=== PATIENT | female | born 1975 | race African-American/Black ===

== ENCOUNTER 2017-08-10 18:10 | Emergency (ER) | payer OTHER ==
[~2017-08-10] VITALS: Ht 175.3 cm; Wt 141.5 kg
[~2017-08-10 18:10] MED LIST: CRANBERRY TABL1 EACH PO; CYANOCOBALAM1000 MCG PO; FLEXERIL10 MG PO; IRON325 MG PO; NAPROSYN500 MG PO; OMEPRAZOLE40 M1 PO; PREDNISONE20 MG PO; ULTRAM50 MG PO; VITAMIN D5000 UNI1 PO
[2017-08-10 19:26] LABS: EOSINOPHIL (%) 3.5 % (0-5); EOSINOPHIL COUNT 0.2 K/uL (0-0.3); HEMATOCRIT 36.9 % (36.0-46.0); IMMATURE GRANULOCYTE (%) 0.9 % (0.0-0.7); IMMATURE GRANULOCYTE COUNT 0.1 K/uL; LYMPHOCYTE COUNT 1.5 K/uL (1.0-2.8); MCH 27.4 PG (29.0-34.0); MCHC 32.5 G/DL (30.0-36.0); MCV 84.2 FL (83-99); MEAN PLAT.VOLUME 10.2 uM^3 (9.5-12.4); MONOCYTE (%) 9.1 % (3-12); MONOCYTE COUNT 0.6 K/uL (0-0.8); NEUTROPHIL (%) 62.7 % (45-76); PLATELET COUNT 253 K/uL (156-360); RBC DIS.WIDTH-CV 13.5 % (11.8-14.6); RED BLOOD COUNT 4.38 M/uL (3.80-5.20); WHITE BLOOD COUNT 6.3 K/uL (4.1-10.2)
[2017-08-10 19:34] LABS: CHLORIDE 105 mEq/L (99-109); SODIUM 138 mEq/L (136-147)
[2017-08-10 19:36] LABS: GLUCOSE 110 mg/dL (70-99)
[2017-08-10 19:37] LABS: ANION GAP 9 MEQ/L (2-14)
[2017-08-10 19:40] LABS: GFR ESTIMATE (CALCULATED) > 59 mL/min/
[2017-08-10 19:41] LABS: UREA NITROGEN (BUN) 14 mg/dL (9-23)
[2017-08-10] MEDS ORDERED: PREDNISONE50 MG PO (20:57)
[2017-08-10] MEDS ORDERED: PROVENTIL HFA6.7 GM IH (20:57)
[2017-08-10] MEDS ORDERED: LEVAQUIN500 MG PO (20:57)
[2017-08-10 21:06] VITALS: BP 113/70
== END 2017-08-10 21:09 | disposition home or self-care (01) ==
LOC: EME 18:10
PROVIDERS: Emergency Medicine
DX: J20.9 Acute bronchitis, unspecified (principal)
CPT/HCPCS: 71020; 80048; 85025; 94640; 99281; 99285; J7512